=== PATIENT | female | born 1975 | race Caucasian/White ===

== ENCOUNTER 2021-03-08 11:20 | Day surgery (SDC) | payer MEDICAID ==
[2021-03-08] VITALS (8 sets, daily range): BP systolic 132–163; BP diastolic 67–96
[~2021-03-08] VITALS: Ht 160 cm; Wt 77.7 kg
[~2021-03-08 11:20] MED LIST: PHEN-786 PO
[2021-03-08] MEDS ORDERED: normal saline 1000ml 1,000 ML IV PRN (11:40)
[2021-03-08] MEDS ORDERED: ASPI-1265 PO (11:52)
[2021-03-08] MEDS ORDERED: GABA600T13 PO (11:59)
[2021-03-08] MEDS ORDERED: NAPROXEN 375 MG PO (11:59)
[2021-03-08] MEDS ORDERED: DIPH-423 PO (11:59)
[2021-03-08] MEDS ORDERED: GABA-534 PO (11:59)
[2021-03-08] MEDS ORDERED: midazolam 1 mg/ML 2ml injection ONE (13:30)
[2021-03-08] MEDS ORDERED: fentaNYL/PF 50MCG/1 ML 2ML syringe ONE (13:31)
== END 2021-03-08 14:30 | disposition home or self-care (01) ==
LOC: SSTAY O 11:20
PROVIDERS: ATTEND Radiology Vascular & Interventional Radiology
DX: R59.0 Localized enlarged lymph nodes (principal); Z79.82 Long term (current) use of aspirin; Z79.899 Other long term (current) drug therapy
CPT/HCPCS: 38505; 77012; J2250; J3010; 99152; 99153

== ENCOUNTER 2021-04-21 08:29 | Day surgery (SDC) | payer MEDICAID ==
[~2021-04-21] VITALS: Ht 162.6 cm; Wt 74.8 kg
[~2021-04-21 08:29] MED LIST changes: +ASPI-1265 PO; +DIPH-423 PO; +GABA-534 PO; +GABA600T13 PO; +LIDOcaine 1% 30ml preserv. free vial IJ STA; +NAPROXEN 375 MG PO; -PHEN-786 PO
[2021-04-21 08:50] VITALS: BP 118/75
[2021-04-21] MEDS ORDERED: DOXY-1 PO (09:05)
[2021-04-21] MEDS ORDERED: CYCL-394 PO (09:05)
[2021-04-21] MEDS ORDERED: midazolam 1 mg/ML 2ml injection ONE ×2 (09:45→10:11)
[2021-04-21] MEDS ORDERED: heparin sodium, porcine/PF 100unit/ml 5ML syringe ONE (09:45)
[2021-04-21] MEDS ORDERED: fentaNYL/PF 50MCG/1 ML 2ML syringe ONE (09:46)
[2021-04-21] MEDS ORDERED: clindamycin 600mg/D5W 50ml 50 ML IV ONE (10:23)
[2021-04-21 10:43] VITALS: BP 129/60
[2021-04-21] MEDS ORDERED: LIDOcaine 1% 30ml preserv. free vial SQ STA (10:47)
[2021-04-21 10:55] VITALS: BP 130/67
[2021-04-21 11:02] VITALS: BP 115/75
[2021-04-21 11:15] VITALS: BP 122/66
[2021-04-21 11:30] VITALS: BP 118/56
== END 2021-04-21 11:50 | disposition home or self-care (01) ==
LOC: SSTAY O 08:29
PROVIDERS: ATTEND Radiology Vascular & Interventional Radiology
DX: C53.0 Malignant neoplasm of endocervix (principal); F17.210 Nicotine dependence, cigarettes, uncomplicated; F12.90 Cannabis use, unspecified, uncomplicated; Z72.89 Other problems related to lifestyle; Z79.899 Other long term (current) drug therapy; Z79.82 Long term (current) use of aspirin; Z95.2 Presence of prosthetic heart valve; Z98.890 Other specified postprocedural states
CPT/HCPCS: 36561; 76937; 77001; 99152; 99153; C1769; C1788; C1894; J1642; J2250; J3010; J3490

== ENCOUNTER 2021-07-20 08:25 | Day surgery (SDC) | payer MEDICAID ==
[~2021-07-20] VITALS: Ht 160 cm; Wt 64.8 kg
[~2021-07-20 08:25] MED LIST changes: +CYCL-394 PO; +DOXY-1 PO; -LIDOcaine 1% 30ml preserv. free vial IJ STA
[2021-07-20] MEDS ORDERED: fentaNYL/PF 50MCG/1 ML 2ML syringe ONE (08:39)
[2021-07-20] MEDS ORDERED: midazolam 1 mg/ML 2ml injection ONE (08:39)
[2021-07-20] MEDS ORDERED: diphenhydrAMINE 50 mg/ml inj ONE (08:39)
[2021-07-20] MEDS ORDERED: normal saline 1000ml 1,000 ML IV PRN (08:40)
[2021-07-20] MEDS ORDERED: LIDOcaine 1% (10mg/ml)w/preservative inj. 20ml MDV ONE (08:59)
[2021-07-20 09:20] LABS: BASOPHILS # (AUTO) 0.1 X10'3 (0-0.2); BASOPHILS % (AUTO) 0.9 % (0-1); EOSINOPHILS # (AUTO) 0.1 X10'3 (0-0.9); EOSINOPHILS % (AUTO) 1.3 % (0-6); HEMATOCRIT 43.5 % (35.0-45.0); HEMOGLOBIN 14.8 g/dl (12.0-16.0); LYMPHOCYTES % (AUTO) 13.4 % (21-51); MEAN CORPUSCULAR HEMOGLOBIN 31.1 PG (27.0-31.0); MEAN CORPUSCULAR HGB CONC 34.1 g/dL (33.0-36.5); MEAN CORPUSCULAR VOLUME 91.2 FL (78-98); MEAN PLATELET VOLUME 9.9 FL (7.4-10.4); MONOCYTES # (AUTO) 0.6 X10'3 (0-0.9); MONOCYTES % (AUTO) 7.7 % (2-12); NEUTROPHILS # (AUTO) 5.6 X10'3 (1.8-7.7); NEUTROPHILS % (AUTO) 76.7 % (42-75); PLATELET COUNT 197 X10'3 (140-440); RED BLOOD COUNT 4.77 X10'6 (4.20-5.60); RED CELL DISTRIBUTION WIDTH 13.7 % (11.5-14.5); WHITE BLOOD COUNT 7.3 X10'3 (4.5-11.0)
[2021-07-20] MEDS ORDERED: OXYC5CAP19 PO (10:10)
[2021-07-20] MEDS ORDERED: POTA10CA44 PO (10:10)
[2021-07-20] MEDS ORDERED: MAGN64TA10 PO (10:10)
[2021-07-20 10:14] VITALS: BP 110/76
== END 2021-07-20 10:30 | disposition home or self-care (01) ==
LOC: SSTAY O 08:25
PROVIDERS: ATTEND Radiology Vascular & Interventional Radiology
DX: C53.0 Malignant neoplasm of endocervix (principal); Z53.8 Procedure and treatment not carried out for other reasons; C79.51 Secondary malignant neoplasm of bone; F17.290 Nicotine dependence, other tobacco product, uncomplicated; Z79.899 Other long term (current) drug therapy; Z79.82 Long term (current) use of aspirin; Z90.49 Acquired absence of other specified parts of digestive tract; Z98.890 Other specified postprocedural states; Z89.431 Acquired absence of right foot
CPT/HCPCS: 36415; 85025; J1200; J3490; J2250; J3010

== ENCOUNTER 2021-07-27 06:09 | Day surgery (SDC) | payer MEDICAID ==
[2021-07-27] VITALS (9 sets, daily range): BP systolic 103–124; BP diastolic 50–87
[~2021-07-27] VITALS: Ht 160 cm; Wt 65.8 kg
[~2021-07-27 06:09] MED LIST changes: -DOXY-1 PO; +MAGN64TA10 PO; -NAPROXEN 375 MG PO; +OXYC5CAP19 PO; +POTA10CA44 PO
[2021-07-27] MEDS ORDERED: normal saline 1000ml 1,000 ML IV SCH ×2 (06:30→11:40)
[2021-07-27] MEDS ORDERED: PROC10TA10 PO (06:42)
[2021-07-27] MEDS ORDERED: MAGN400C PO (06:42)
[2021-07-27] MEDS ORDERED: LIDO30CR (06:42)
[2021-07-27] MEDS ORDERED: HYDR-3686 PO (06:46)
[2021-07-27] MEDS ORDERED: ONDA8TAB13 PO (06:47)
[2021-07-27 07:18] LABS: BASOPHILS % (AUTO) 0.4 % (0-1); EOSINOPHILS % (AUTO) 0 % (0-6); HEMATOCRIT 25.8 % (35.0-45.0); HEMOGLOBIN 8.7 g/dl (12.0-16.0); LYMPHOCYTES # (AUTO) 0.9 X10'3 (1.1-4.8); LYMPHOCYTES % (AUTO) 27.6 % (21-51); MEAN CORPUSCULAR HGB CONC 33.5 g/dL (33.0-36.5); MEAN CORPUSCULAR VOLUME 80.6 FL (78-98); MONOCYTES # (AUTO) 0.6 X10'3 (0-0.9); MONOCYTES % (AUTO) 18.3 % (2-12); NEUTROPHILS # (AUTO) 1.7 X10'3 (1.8-7.7); NEUTROPHILS % (AUTO) 53.7 % (42-75); PLATELET COUNT 334 X10'3 (140-440); RED BLOOD COUNT 3.21 X10'6 (4.20-5.60); RED CELL DISTRIBUTION WIDTH 37.5 % (11.5-14.5); WHITE BLOOD COUNT 3.2 X10'3 (4.5-11.0)
--- NOTE | 2021-07-27 07:30 | NUR ---
Pt iv fluids infusing as ordered.
[2021-07-27 07:41] LABS: NUCLEATED RED BLOOD CELLS 1 /100WBC (0-0); TOTAL CELLS COUNTED 100
[2021-07-27 07:42] LABS: ANISOCYTOSIS 3+; ELLIPTOCYTES FEW; PLATELET ESTIMATE NORMAL; POLYCHROMASIA FEW
[2021-07-27] MEDS ORDERED: FLU VACC QS2021-22(6MOS UP)/PF 60 MCG/0.5 ML SYRINGE IM ONE (08:00)
[2021-07-27] MEDS ORDERED: proCHLORperazine 10 MG/2 ml inj ONE (08:27)
[2021-07-27] MEDS ORDERED: midazolam 1 mg/ML 2ml injection ONE ×3 (08:28→09:38)
[2021-07-27] MEDS ORDERED: fentaNYL/PF 50MCG/1 ML 2ML syringe ONE ×3 (08:28→10:21)
[2021-07-27] MEDS ORDERED: diphenhydrAMINE 50 mg/ml inj ONE (08:28)
[2021-07-27] MEDS ORDERED: LIDOcaine 1% (10mg/ml)w/preservative inj. 20ml MDV ONE (08:28)
[2021-07-27] MEDS ORDERED: iohexol 300 MG/1 ML 50ml polymer ONE (08:28)
--- NOTE | 2021-07-27 11:35 | NUR ---
MD aware of pt pain 06/30, posterior lower back. Verbal order to re-evaluate in "a couple of hours" to determine discharge time.
[2021-07-27] MEDS ORDERED: HYDROcodone/acetaminophen 5mg/325mg tablet PO PRN (11:40)
--- NOTE | 2021-07-27 12:20 | NUR ---
Pt laying supine in bed eating breakfast tray. States "pain is getting worse", rates as 6/10. Will administer medication as ordered.
--- NOTE | 2021-07-27 12:53 | NUR ---
Pt ate 100% of breakfast tray. 250ml oral fluid intake.
--- NOTE | 2021-07-27 13:10 | NUR ---
Pt appears to be sleeping comfortably, eyes closed even respirations. VS stable as charted.
--- NOTE | 2021-07-27 13:47 | NUR ---
XRAY at bedside
== END 2021-07-27 14:25 | disposition home or self-care (01) ==
LOC: SSTAY O 06:09
PROVIDERS: ATTEND Radiology Vascular & Interventional Radiology
DX: M84.58XA Pathological fracture in neoplastic disease, other specified site, initial encounter for fracture (principal); M89.58 Osteolysis, other site; M54.6 Pain in thoracic spine; M54.59 Other low back pain; Z85.41 Personal history of malignant neoplasm of cervix uteri; Z79.899 Other long term (current) drug therapy; Z98.890 Other specified postprocedural states; F17.210 Nicotine dependence, cigarettes, uncomplicated; Z72.89 Other problems related to lifestyle; F12.90 Cannabis use, unspecified, uncomplicated
CPT/HCPCS: 22513; 22515; 36415; 72100; 85025; 99152; 99153; C1713; J0780; J1200; J2250; J3010; J3490; J7030; Q9967; 85007

== ENCOUNTER 2022-01-18 05:59 | Day surgery (SDC) | payer MEDICAID ==
[2022-01-18] VITALS (8 sets, daily range): BP systolic 149–159; BP diastolic 91–103
[~2022-01-18] VITALS: Ht 160 cm; Wt 64.4 kg
[~2022-01-18 05:59] MED LIST changes: -ASPI-1265 PO; +HYDR-3686 PO; +LIDO30CR; +MAGN400C PO; -MAGN64TA10 PO; +ONDA8TAB13 PO; +PROC10TA10 PO
[2022-01-18] MEDS ORDERED: normal saline 1000ml 1,000 ML IV PRN (06:25)
[2022-01-18] MEDS ORDERED: POLY500P23 (06:57)
[2022-01-18] MEDS ORDERED: FE F PO (06:57)
[2022-01-18] MEDS ORDERED: [UNRECOGNIZED DRUG - CODE] (06:57)
[2022-01-18 07:54] LABS: BASOPHILS % (AUTO) 0.2 % (0-1); EOSINOPHILS # (AUTO) 0.1 X10'3 (0-0.9); EOSINOPHILS % (AUTO) 1.7 % (0-6); HEMATOCRIT 29.5 % (35.0-45.0); HEMOGLOBIN 9.6 g/dl (12.0-16.0); LYMPHOCYTES # (AUTO) 1.2 X10'3 (1.1-4.8); MEAN CORPUSCULAR HGB CONC 32.5 g/dL (33.0-36.5); MEAN CORPUSCULAR VOLUME 86.1 FL (78-98); MEAN PLATELET VOLUME 7.3 FL (7.4-10.4); MONOCYTES # (AUTO) 0.7 X10'3 (0-0.9); MONOCYTES % (AUTO) 9.6 % (2-12); NEUTROPHILS # (AUTO) 5.4 X10'3 (1.8-7.7); NEUTROPHILS % (AUTO) 72.5 % (42-75); PLATELET COUNT 294 X10'3 (140-440); RED BLOOD COUNT 3.43 X10'6 (4.20-5.60); RED CELL DISTRIBUTION WIDTH 21.7 % (11.5-14.5); WHITE BLOOD COUNT 7.4 X10'3 (4.5-11.0)
[2022-01-18 08:12] LABS: PLATELET ESTIMATE NORMAL
[2022-01-18 08:13] LABS: ALBUMIN 3.4 G/DL (3.4-5.0); ANION GAP 10 (8-16); ANISOCYTOSIS 3+; BLOOD UREA NITROGEN 10 MG/DL (7-18); BUN/CREATININE RATIO 11.4 (6.6-38.0); CALCIUM 9.1 MG/DL (8.5-10.1); CHLORIDE 105 MMOL/L (99-107); CREATININE 0.88 MG/DL (0.40-0.90); GLUCOSE 86 MG/DL (70-104); HYPOCHROMASIA 1+; MICROCYTOSIS 1+; POTASSIUM 3.8 MMOL/L (3.5-5.1); SODIUM 140 MMOL/L (135-145); TOTAL CARBON DIOXIDE 25.3 MMOL/L (24-32); eGFR 69 ML/MIN
[2022-01-18] MEDS ORDERED: LIDOcaine 1% (10mg/ml) 2ml vial ONE (08:17)
[2022-01-18] MEDS ORDERED: midazolam 1 mg/ML 2ml injection ONE (09:02)
[2022-01-18] MEDS ORDERED: fentaNYL/PF 50MCG/1 ML 2ML syringe ONE (09:02)
[2022-01-18] MEDS ORDERED: gelatin sponge, absorbable (Gelfoam 12-7MM) sponge TP ONE (09:08)
[2022-01-18] MEDS ORDERED: HYDROcodone/acetaminophen 5mg/325mg tablet PO PRN (09:45)
--- NOTE | 2022-01-18 10:30 | NUR ---
Pt ate 100% of lunch tray. 350ml oral fluid intake
--- NOTE | 2022-01-18 11:16 | NUR ---
1106 Pt states pain 6/10 on right side, denies radiating pain. Drsg CD&I, no s/s of bleeding or infection. Pt states pain is constant, movement aggravates it. Pt did ambulate to bathroom, per order. Will bring patient pain medication as ordered.
--- NOTE | 2022-01-18 13:24 | NUR ---
1110 Pt ambulated to bathroom, voided.
== END 2022-01-18 12:53 | disposition home or self-care (01) ==
LOC: SSTAY O 05:59
PROVIDERS: ATTEND Radiology Vascular & Interventional Radiology
DX: K76.9 Liver disease, unspecified (principal); Z85.41 Personal history of malignant neoplasm of cervix uteri; Z79.899 Other long term (current) drug therapy; F17.210 Nicotine dependence, cigarettes, uncomplicated; F12.90 Cannabis use, unspecified, uncomplicated
CPT/HCPCS: 36415; 47000; 76942; 80048; 85025; 99152; 99153; J2250; J3010; J3490; J7030; 85008; A4620